=== PATIENT | male | born 1980 | race Caucasian/White ===

== ENCOUNTER 2021-04-26 14:35 | Emergency (ER) | payer OTHER, MEDICAID, SELFPAY ==
[2021-04-26] VITALS (8 sets, daily range): BP systolic 137–160; BP diastolic 82–98; PULSE 64–79; RESP 18; TEMP 36.6; O2SAT 96–99
[2021-04-26 15:00] LABS: Add Manual Diff / Slide Review NO; Basophils Absolute Auto 0 /uL (0-100); Basophils Percent Auto 0.3 % (0-2); Eosinophils Absolute Auto 100 /uL (0-450); Eosinophils Percent Auto 1.2 % (2-4); Hematocrit 49.3 % (41-53); Hemoglobin 16.7 g/dL (13.5-17.5); Lymphocytes Absolute Auto 2400 /uL (1100-4500); Lymphocytes Percent Auto 25.9 % (25-40); Mean Corpuscular HGB Conc 33.9 % (30-36); Mean Corpuscular Hemoglobin 30.7 PG (26-34); Mean Corpuscular Volume 90.5 fL (80-100); Monocytes Absolute Auto 700 /uL (0-900); Monocytes Percent Auto 8.1 % (3-14); Neutrophils Absolute Auto 6000 /uL (1500-7000); Neutrophils Percent Auto 64.5 % (50-75); Platelet Count 310 X10^3/uL (150-400); Red Blood Cell Count 5.45 X10^6/uL (4.5-5.9); White Blood Cell Count 9.2 X10^3/uL (4.5-11.0)
--- NOTE | 2021-04-26 15:02 | ED.ABDPAIN ---
HPI - Abdominal Pain General Chief Complaint: Abdominal Pain Stated Complaint: Sharp pains in lower right abd/back Time Seen by Provider: 04/26/21 14:45 Source: patient Mode of arrival: Ambulatory History of Present Illness HPI narrative: 41-year-old male nonsmoker, though he does vape) with history of PTSD presents with a chief complaint of a few weeks of episodic right lower quadrant pain with radiation to his back. He is unclear how it started and denies any prior history of the same. He states that it seems to worsen when he moves and improves with rest in his largely present on some level but does have episodes of worsening. He states that it is sharp, stabbing and occasionally cramping. He denies any fever or chills. He has no nausea, vomiting or change in appetite. He denies any diarrhea or constipation. He denies any dysuria, frequency, urgency, hematuria or other. Related Data Home Medications Medication Instructions Recorded Confirmed gabapentin 300 mg capsule 300 mg PO DAILY 04/26/21 04/26/21 methylphenidate HCl 20 mg tablet 20 mg PO DAILY 04/26/21 04/26/21 Previous Rx's Medication Instructions Recorded amoxicillin 875 mg-potassium 1 tab PO BID #20 tab 04/26/21 clavulanate 125 mg tablet (Augmentin) hydrocodone 5 mg-acetaminophen 325 1 tab PO Q4-6H PRN #10 tab 04/26/21 mg tablet ondansetron 4 mg disintegrating 4 mg PO TID-QID PRN #10 tab 04/26/21 tablet Allergies Allergy/AdvReac Type Severity Reaction Status Date / Time lamotrigine [From Lamictal] Allergy Severe Rash Verified 04/26/21 14:56 Review of Systems Review of Systems Narrative: GENERAL: Denies chills, fatigue, malaise, fever, sweats. HEENT: Denies sinus pain, ear pain, sore throat, difficulty swallowing, dizziness. RESPIRATORY: Denies dyspnea, cough, wheezing, hemoptysis, sputum. CARDIOVASCULAR: Denies chest pain, palpitations, orthopnea, edema, GASTROINTESTINAL: See HPI : Denies dysuria, frequency, incontinence, hematuria, urinary retention. MUSCULOSKELETAL: denies weakness, joint pain, or bony pain SKIN: Denies rash, skin lesions, or other NEUROLOGIC: Denies weakness, headache, numbness, change in speech, confusion, seizures, incoordination. PSYCHIATRIC: No concerning psychosocial issues. 12 point review of systems is negative except for those stated above Patient History Social History Smoking Status: Current every day smoker Smoking Status: Current every day smoker tobacco type: vaping alcohol intake frequency: other Substance Use Type: marijuana Exam Narrative Exam Narrative: GENERAL: [41 year old patient appears stated age. Well-developed patient, in mild distress. HEAD: Atraumatic. Normocephalic. EYES: Pupils equal round and reactive. Extraocular motions intact. No scleral icterus. No injection or drainage. ENT: Nose without bleeding, purulent drainage. Throat without erythema, tonsillar hypertrophy or exudate. Airway patent. NECK: Trachea midline. Non tender CARDIOVASCULAR: Regular rate and rhythm without murmurs, gallops, or rubs. RESPIRATORY: Clear to auscultation. Breath sounds equal bilaterally. No wheezes, rales, or rhonchi. GASTROINTESTINAL: Abdomen soft, mildly tender in the right lower quadrant nondistended. No guarding, rebound or change in bowel sounds EXTREMITIES: No edema or joint tenderness. BACK: Nontender without deformity or crepitance. No flank tenderness. NEURO: AOx3. SKIN: No rash or erythema of visible areas Initial Vital Signs Initial Vital Signs: Vital Signs Temperature 97.8 F 04/26/21 14:40 Pulse Rate 78 04/26/21 14:40 Respiratory Rate 18 04/26/21 14:40 Blood Pressure 156/97 H 04/26/21 14:40 Pulse Oximetry 97 04/26/21 14:40 Course Orders Ordered: ED Orders 04/26/21 14:45 Urinalysis and Microscopic Stat 04/26/21 14:50 Complete Blood Count AUTO DIFF Stat Comprehensive Metabolic Panel Stat Lipase Stat 04/26/21 15:13 CT abdomen pelvis w con Stat Discontinued Medications Sodium Chloride (Normal Saline 0.9%) 1,000 mls @ 1,000 mls/hr IV BOLUS ONE Stop: 04/26/21 15:52 Last Admin: 04/26/21 15:10 Dose: 1,000 mls/hr Documented by: LAMONT Ketorolac Tromethamine (Ketorolac 30 Mg/Ml Vial) 15 mg IV NOW ONE Stop: 04/26/21 14:54 Last Admin: 04/26/21 15:10 Dose: 15 mg Documented by: LAMONT Vital Signs Vital signs: Vital Signs - 8 hr 04/26/21 14:40 04/26/21 14:51 04/26/21 14:52 Temperature 97.8 F Pulse Rate 78 79 77 Respiratory Rate 18 Blood Pressure 156/97 H 156/97 H Pulse Oximetry 97 97 98 04/26/21 15:00 04/26/21 15:30 04/26/21 15:40 Temperature Pulse Rate 74 69 65 Respiratory Rate Blood Pressure 145/90 H 137/82 156/85 H Pulse Oximetry 96 98 99 04/26/21 16:00 Temperature Pulse Rate 65 Respiratory Rate Blood Pressure 141/90 H Pulse Oximetry 97 MDM - Abdominal Pain Lab Data Result diagrams: 04/26/21 14:50 04/26/21 14:50 Labs: Lab Results 04/26/21 04/26/21 04/26/21 Range/Units 14:45 14:50 14:50 WBC 9.2 (4.5-11.0) X10^3/uL RBC 5.45 (4.5-5.9) X10^6/uL Hgb 16.7 (13.5-17.5) g/dL Hct 49.3 (41-53) % MCV 90.5 (80-100) fL MCH 30.7 (26-34) PG MCHC 33.9 (30-36) % RDW 13.0 (11.6-14.8) % Plt Count 310 (150-400) X10^3/uL Neut % (Auto) 64.5 (50-75) % Lymph % (Auto) 25.9 (25-40) % [place] % (Auto) 8.1 (3-14) % Eos % (Auto) 1.2 L (2-4) % Baso % (Auto) 0.3 (0-2) % Neut # (Auto) 6000 (7329-3142) /uL Lymph # (Auto) 2400 (3165-4926) /uL [place] # (Auto) 700 (0-900) /uL Eos # (Auto) 100 (0-450) /uL Baso # (Auto) 0 (0-100) /uL Sodium 141 (137-145) mmol/L Potassium 4.1 (3.4-5.1) mmol/L Chloride 106 (98-107) mmol/L Carbon Dioxide 26 (22-32) mmol/L BUN 13 (9-20) mg/dL Creatinine 0.77 (0.66-1.25) mg/dL Estimated GFR > 60.0 (>60) mL/min BUN/Creatinine Ratio 16.9 (6-22) Glucose 96 (70-100) mg/dL Calcium 9.5 (8.4-10.2) mg/dL Total Bilirubin 0.7 (0.2-1.3) mg/dL AST 33 (17-59) IU/L ALT 35 (<50) IU/L Alkaline Phosphatase 77 (38-126) U/L Total Protein 8.3 H (6.3-8.2) g/dL Albumin 5.1 H (3.5-5.0) g/dL Globulin 3.2 (1.7-4.1) g/dL Albumin/Globulin Ratio 1.6 (1.0-2.8) Lipase 60 (23-300) U/L Urine Color Yellow Urine Appearance Clear Urine pH 8.0 (4.5-8.0) Ur Specific Mar[place] 1.010 (1.000-1.035) Urine Protein Negative (Negative) Urine Glucose (UA) Negative (Negative) g/dL Urine Ketones Negative (NEGATIVE) Urine Occult Blood Negative (Negative) Urine Nitrate Negative (Negative) Urine Bilirubin Negative (NEGATIVE) Urine Urobilinogen 0.2 (0.2) E.U./dL Ur Leukocyte Esterase Negative (NEGATIVE) Urine RBC None seen (0-5/HPF) Urine WBC None seen (0-5/HPF) Ur Squamous Epith Cells 1-5 /hpf (0-5/HPF) Urine Bacteria None seen (None) Ur Culture Indicated? Cult not indicated Imaging Data CT scan - abdomen/pelvis: Radiologist's Impression: Roshan Baez??41??M??1980 ? Allergy/Adv: lamotrigine Close Abdomen/Pelvis CT (Signed) Jeniffer Montejo - 04/26/21 Launch?[address] [address] [address] Scan Report Signed Patient: Roshan Baez MR#: [id number] : 1980 Acct:[id number] Age/Sex: 41 / M Date of Service: 04/26/21 Loc: ED Accession Number: [id number] ?? Procedure: CT abdomen pelvis w con Ordering Provider: Chandana Delgadillo D.O. PROCEDURE:? CT ABDOMEN PELVIS W CON ? INDICATIONS:? severe RLQ pain with radiation to back ? TECHNIQUE:? After the administration of IV contrast, axial sections were acquired from the lung bases to the pubic symphysis.? Coronal and sagittal reformats were performed.? For radiation dose reduction, the following was used:? automated exposure control, adjustment of mA and/or kV according to patient size. ? COMPARISON:? None. ? FINDINGS:? Image quality:? Excellent.? ? Lung bases:? There are several scattered subcentimeter pulmonary nodules identified as follows: ? Right middle lobe: ? 2 mm series 3, image 1 ?4 mm series 3, image 2 ?1-2 mm series 3, image 4 ? Right lower lobe ?4 mm series 3, image 5 ?1-3 mm nodules along the major fissure series 3 images 1-4 ?2 mm ground-glass appearing nodule series 3, image 3 ?6 mm series 3, image 8 ? Left lower lobe: ? 4 mm series 3, image 9 ?3 mm series 3, image 4 ?3 mm series 3, image 7 ? Left upper lobe: ? 3 mm series 3, image 8 ? Heart:? No significant findings. ? ? ABDOMEN: Liver:? Liver is mildly prominent with steatosis. Gallbladder:? No stones or wall thickening.? ? Biliary ducts:? Unremarkable.? ? Pancreas:? Unremarkable.? ? Spleen:? Unremarkable.? ? Adrenal Glands:? Unremarkable.? ? Kidneys and Ureters:? Unremarkable.? ? ? Stomach and Bowel:? Stomach, small bowel loops, and colon are nonobstructive.? There is a very minimal appearance of thickening within the distal sigmoid colon with minimal pericolonic stranding.? The appendix is normal in size.? There is a very minimal appearance of stranding within the midportion of the appendix.? Remaining segments are unremarkable. Peritoneum:? No abnormal intraperitoneal fluid.? No free air.? ? Ventral Wall: ? No hernia.? Abdominal Nodes:? No retroperitoneal or mesenteric adenopathy by size criteria.? Vessels:? Aorta and inferior vena cava are normal in size.? ? PELVIS: Pelvic Organs:? Unremarkable.? ? Bladder:? Unremarkable.? ? Pelvic Nodes: No enlarged lymph nodes.? Miscellaneous: No inguinal hernias are seen. ? ? ? Bones:? Sclerosis is present within the inferior right pubic ramus suggestive of bone island. ? ? IMPRESSION:? 1. Appendix is overall normal in size.? As noted above, there is a very minimal appearance of stranding within the midportion without wall thickening or pending cleft.? This is overall nonspecific and no priors are available for comparison.? If this correlates to area of pain, very early developing appendicitis cannot be definitively excluded and continued interval follow-up is recommended. ? 2. Minimal appearance of distal sigmoid thickening with very minimal appearance of pericolonic stranding.? Early changes of colitis cannot be excluded. ? 3. Multiple bilateral pulmonary nodules the largest measuring 6 mm.? There overall nonspecific and no priors are available for comparison.? Recommend interval follow-up as below. ? ? Fleischner Society criteria for SOLID lung nodule followup.? Nodule size (mm)Low-risk patientHigh-risk patient<6 (single or multiple)No routine followup.Optional CT at 12 months. 6-8 (single or multiple)CT at 6-12 months, then optional CT at 18-24 mo.CT at 6-12 months, then CT at 18-24 months.? >8 (single)CT, PET-CT, or biopsy at 3 months. Same as for low-risk pts.? >8 (multiple)CT at 3-6 months, then optional CT at 18-24 mo.CT at 3-6 months, then CT at 18-24 months.? Fleischner Society criteria for SUB-SOLID lung nodule followup.? Solitary pure ground-glass nodules<6 mm (ground glass or part solid)No followup needed.? 6 mm or larger (ground glass)CT at 6-12 months to confirm persistence, then CT every 2 years until 5 years.6 mm or larger (part solid)CT at 3-6 months to confirm persistence, then annual CT until 5 years if unchanged and solid component remains <6 mm.? Multiple sub-solid nodules<6 mmCT at 3-6 months, then CT consider at 2 & 4 years for high risk patients. [address] at 3-6 months. Subsequent management based on most suspicious lesions. Recommendations do not apply to lung cancer screening, patients with immunosuppression, or patients with known primary cancer. ? ? ? Dictated by: Jeniffer Montejo M.D. on 04/26/2021 at 15:59 ? ? Approved by: Jeniffer Montejo M.D. on 04/26/2021 at 16:07 ? MDM Narrative Medical decision making narrative: 41M with reassuring labs, imaging, and exam. Pain is well controlled. Tolerating orals. Questions answered to his apparent satisfaction. Return precautions given Discharge Plan Departure Patient Disposition: Home Clinical Impression: Colitis Instructions: DI for Abdominal Pain-Adult Activity Restrictions/Additional Instructions: *You have been diagnosed with [ Right lower quadrant pain likely due to early colitis. Your appendix looks good and there is no sign of bowel obstruction or kidney stone. ] *What to do: *Please continue to take your regular medications as directed. [x ] New medication prescriptions sent to your pharmacy: [[facility] in [place] ] [ ] New medication written as a paper prescription [ ] No new medications given *Please follow up with your primary care provider in 2-3 days, call for an appointment. Let them know you were seen in the Emergency Department and that we ask that you be seen in follow up. We will electronically transmit a record of today's note if your PCP is in our system * as we discussed please consider a clear liquid diet for the next few days and then advance as tolerated *Return to Emergency Department if you should have any new, worsening or concerning symptoms, such as [fever greater than 101 F, shaking chills, worsening pain, persistent vomiting or other bothersome symptoms] You have been prescribed a short course of narcotic medications. These are potentially dangerous and addictive medications that should be used carefully. While on these medications you cannot drive or operate heavy machinery. Additionally, you cannot sign legal documents or perform any duties such as this. Many people get constipated on narcotic medications so it would be advisable to discuss stool softeners with the pharmacist when you pickle processor your prescription. Please understand that we cannot provide further refills of narcotics or controlled substances through the ED and your pain management will need to be through your Primary Care Provider Prescriptions: New hydrocodone-acetaminophen 5-325 mg tablet 1 tab PO Q4-6H PRN (Reason: pain) Qty: 10 RF: 0 ondansetron 4 mg tablet,disintegrating 4 mg PO TID-QID PRN (Reason: nausea and vomiting) Qty: 10 RF: 0 amoxicillin-pot clavulanate [Augmentin] 875-125 mg tablet 1 tab PO BID Qty: 20 RF: 0 No Action methylphenidate HCl 20 mg tablet 20 mg PO DAILY RF: 0 gabapentin 300 mg capsule 300 mg PO DAILY RF: 0 Referrals: Jose Do MD [Primary Care Provider] -
[2021-04-26 15:10] LABS: Appearance Urine UA CLEAR; Bilirubin Urine UA NEGATIVE (NEGATIVE); Color Urine UA YELLOW; Glucose Urine UA NEGATIVE (Negative); Ketones Urine UA NEGATIVE (NEGATIVE); Leukocyte Esterase Urine UA NEGATIVE (NEGATIVE); Nitrite Urine UA NEGATIVE (Negative); Occult Blood Urine UA NEGATIVE (Negative); Protein Urine UA NEGATIVE (Negative); Urobilinogen Urine UA 0.2 E.U./dL (0.2)
[2021-04-26] MEDS: SODIUM CHLORIDE 0.9% 1,000 ML 1000 ML IV (15:10)
[2021-04-26] MEDS: KETOROLAC 30 MG/ML VIAL 15 MG IV (15:10)
[2021-04-26 15:13] LABS: Alanine Aminotransferase 35 IU/L (<50); Albumin 5.1 g/dL (3.5-5.0); Albumin Globulin Ratio 1.6 (1.0-2.8); Alkaline Phosphatase 77 U/L (38-126); Aspartate Aminotransferase 33 IU/L (17-59); BUN Creatinine Ratio 16.9 (6-22); Bilirubin Total 0.7 mg/dL (0.2-1.3); Blood Urea Nitrogen 13 mg/dL (9-20); Calcium 9.5 mg/dL (8.4-10.2); Carbon Dioxide 26 mmol/L (22-32); Chloride 106 mmol/L (98-107); Estimated Glomerular Filt Rate > 60.0 mL/min (>60); Globulin 3.2 g/dL (1.7-4.1); Glucose 96 mg/dL (70-100); HEMOLYSIS 20 (0-50); Lipase 60 U/L (23-300); Potassium 4.1 mmol/L (3.4-5.1); Sodium 141 mmol/L (137-145); Total Protein 8.3 g/dL (6.3-8.2)
--- NOTE | 2021-04-26 15:13 | DI.CT.S_ITS ---
PROCEDURE: CT ABDOMEN PELVIS W CON INDICATIONS: severe RLQ pain with radiation to back TECHNIQUE: After the administration of IV contrast, axial sections were acquired from the lung bases to the pubic symphysis. Coronal and sagittal reformats were performed. For radiation dose reduction, the following was used: automated exposure control, adjustment of mA and/or kV according to patient size. COMPARISON: None. FINDINGS: Image quality: Excellent. Lung bases: There are several scattered subcentimeter pulmonary nodules identified as follows: Right middle lobe: 2 mm series 3, image 1 4 mm series 3, image 2 1-2 mm series 3, image 4 Right lower lobe 4 mm series 3, image 5 1-3 mm nodules along the major fissure series 3 images 1-4 2 mm ground-glass appearing nodule series 3, image 3 6 mm series 3, image 8 Left lower lobe: 4 mm series 3, image 9 3 mm series 3, image 4 3 mm series 3, image 7 Left upper lobe: 3 mm series 3, image 8 Heart: No significant findings. ABDOMEN: Liver: Liver is mildly prominent with steatosis. Gallbladder: No stones or wall thickening. Biliary ducts: Unremarkable. Pancreas: Unremarkable. Spleen: Unremarkable. Adrenal Glands: Unremarkable. Kidneys and Ureters: Unremarkable. Stomach and Bowel: Stomach, small bowel loops, and colon are nonobstructive. There is a very minimal appearance of thickening within the distal sigmoid colon with minimal pericolonic stranding. The appendix is normal in size. There is a very minimal appearance of stranding within the midportion of the appendix. Remaining segments are unremarkable. Peritoneum: No abnormal intraperitoneal fluid. No free air. Ventral Wall: No hernia. Abdominal Nodes: No retroperitoneal or mesenteric adenopathy by size criteria. Vessels: Aorta and inferior vena cava are normal in size. PELVIS: Pelvic Organs: Unremarkable. Bladder: Unremarkable. Pelvic Nodes: No enlarged lymph nodes. Miscellaneous: No inguinal hernias are seen. Bones: Sclerosis is present within the inferior right pubic ramus suggestive of bone island. IMPRESSION: 1. Appendix is overall normal in size. As noted above, there is a very minimal appearance of stranding within the midportion without wall thickening or pending cleft. This is overall nonspecific and no priors are available for comparison. If this correlates to area of pain, very early developing appendicitis cannot be definitively excluded and continued interval follow-up is recommended. 2. Minimal appearance of distal sigmoid thickening with very minimal appearance of pericolonic stranding. Early changes of colitis cannot be excluded. 3. Multiple bilateral pulmonary nodules the largest measuring 6 mm. There overall nonspecific and no priors are available for comparison. Recommend interval follow-up as below. Fleischner Society criteria for SOLID lung nodule followup. Nodule size (mm)Low-risk patientHigh-risk patient<6 (single or multiple)No routine followup.Optional CT at 12 months. 6-8 (single or multiple)CT at 6-12 months, then optional CT at 18-24 mo.CT at 6-12 months, then CT at 18-24 months. >8 (single)CT, PET-CT, or biopsy at 3 months. Same as for low-risk pts. >8 (multiple)CT at 3-6 months, then optional CT at 18-24 mo.CT at 3-6 months, then CT at 18-24 months. Fleischner Society criteria for SUB-SOLID lung nodule followup. Solitary pure ground-glass nodules<6 mm (ground glass or part solid)No followup needed. 6 mm or larger (ground glass)CT at 6-12 months to confirm persistence, then CT every 2 years until 5 years.6 mm or larger (part solid)CT at 3-6 months to confirm persistence, then annual CT until 5 years if unchanged and solid component remains <6 mm. Multiple sub-solid nodules<6 mmCT at 3-6 months, then CT consider at 2 & 4 years for high risk patients. [address] at 3-6 months. Subsequent management based on most suspicious lesions. Recommendations do not apply to lung cancer screening, patients with immunosuppression, or patients with known primary cancer. Dictated by: Jeniffer Montejo M.D. on 04/26/2021 at 15:59 Approved by: Jeniffer Montejo M.D. on 04/26/2021 at 16:07
[2021-04-26 15:23] LABS: Bacteria Urine None Seen; Culture Indicated Urine Cult Not Indicated; RBC Urine None Seen (0-5/HPF); Squamous Epithelial Cell Urine 1-5 /HPF (0-5/HPF); WBC Urine None Seen (0-5/HPF)
== END 2021-04-26 16:36 | disposition home or self-care (01) ==
PROVIDERS: Emergency Provider Emergency Medicine; PCP Internal Medicine
DX: K52.9 Noninfective gastroenteritis and colitis, unspecified (principal)
CPT/HCPCS: 36415; 74177; 80053; 81001; 83690; 85025; 96361; 96374; 99284; J1885; Q9967

== ENCOUNTER → 2021-05-07 11:41 | Outpatient (CLI) | payer OTHER, MEDICAID, SELFPAY ==
--- NOTE | 2021-05-07 | DI.CT.S_ITS ---
PROCEDURE: CT ABDOMEN PELVIS W CON INDICATIONS: Right lower quadrant pain TECHNIQUE: After the administration of oral and intravenous contrast, axial sections were acquired from the lung bases to the pubic symphysis. Coronal and sagittal reformats were performed. For radiation dose reduction, the following was used: automated exposure control, adjustment of mA and/or kV according to patient size. COMPARISON:[facility], CT, CT ABDOMEN PELVIS W CON, 04/26/2021, 15:37. FINDINGS: Image quality: Excellent. Lung bases: Lung bases are clear. Heart size is normal. Solid organs: Liver: The liver has no mass or intrahepatic biliary ductal dilatation. The portal vein and hepatic veins are patent. Biliary: The gallbladder has no gallstones, pericholecystic fluid, gallbladder wall thickening, or surrounding inflammatory change. Pancreas: The pancreas has no mass or ductal dilatation. There is no surrounding inflammation. Spleen: Normal size. There are no masses. Adrenals: No hypertrophy or nodules. Kidneys: No obstructive calculus or hydronephrosis. No solid mass. No cystic mass. Peritoneum and bowel: The distal esophagus and stomach are normal. The small bowel has a normal caliber and appearance. The terminal ileum is normal. The large bowel has a normal caliber and appearance. The appendix is normal. No free fluid or air. Nodes and vessels: No retroperitoneal or mesenteric adenopathy by size criteria. Aorta and inferior vena cava are normal in size. Miscellaneous: No abdominal wall mass or hernia. PELVIS: Genitourinary: The bladder has no wall thickening or mass. No bladder calcifications. Miscellaneous: No inguinal hernias or adenopathy. Bones: No suspicious bony lesions. No vertebral body compression fractures. IMPRESSION: 1. No acute abdominal or pelvic abnormality. 2. Normal appendix. No kidney stones. Dictated by: Edgar Dang M.D. on 05/07/2021 at 13:36 Approved by: Edgar Dang M.D. on 05/07/2021 at 13:40
== END ==
PROVIDERS: PCP Internal Medicine; Referring Provider Family Medicine; Visit Provider Family Medicine
DX: R10.31 Right lower quadrant pain (principal)
CPT/HCPCS: 74177

== ENCOUNTER 2023-07-27 01:35 | Emergency (ER) | payer OTHER, MEDICAID, SELFPAY ==
[2023-07-27] VITALS (10 sets, daily range): BP systolic 117–160; BP diastolic 70–99; PULSE 37–84; RESP 18; TEMP 36.8; O2SAT 93–98; BMI 25.8
--- NOTE | 2023-07-27 01:46 | DI.US.S_ITS ---
PROCEDURE: US SCROTUM INDICATIONS: L testicular pain TECHNIQUE: Real-time scanning was performed of the scrotum and testicles, with image documentation. Color and pulse Doppler interrogation was performed of both testicles. COMPARISON: None. FINDINGS: Right: Testicle is normal in size at 4.3 x 2.3 x 2.9 cm, and homogenous in echotexture. Epididymis is normal in overall size and morphology. No hydrocele or varicoceles. Overlying scrotal skin is normal in thickness. Left: Testicle is normal in size at 3.9 x 2.0 x 2.7 cm, and homogeneous in echotexture. Epididymis is normal in overall size and morphology. No hydrocele or varicoceles. Overlying scrotal skin is normal in thickness. Incidental left epididymal head cysts. Doppler: Color and pulse Doppler demonstrate normal and symmetric arterial flow in both testicles. IMPRESSION: Unremarkable sonographic evaluation of the bilateral testicles. No evidence for acute inflammatory changes. No evidence for testicular torsion. No significant discrepancy with the night assistant radiology preliminary report. Dictated by: Rey Torres M.D. on 07/27/2023 at 7:57 Approved by: Rey Torres M.D. on 07/27/2023 at 8:03
--- NOTE | 2023-07-27 01:52 | ED_ITS ---
HPI - General Adult General Chief complaint: Urogenital-Male Stated complaint: pain in left testicle was seen in [place] Time Seen by Provider: 07/27/23 01:38 Source: patient Mode of arrival: Ambulatory History of Present Illness HPI narrative: Patient is a 43-year-old male. Approximately 2 weeks ago the patient had left- sided testicular pain. He went to an outside emergency department. He states that he had some labs drawn to check to see whether or not he had any sexually transmitted infections. No ultrasound was performed. He was presumptively treated for an STI. He completed the course of antibiotics. He thinks that ap proximately 5-7 days after starting the antibiotics all of the discomfort that he was having actually resolved. He states that approximately 12 hours ago before coming to the emergency department this time he started to have the same left-sided testicular pain. No swelling. No vomiting. No abdominal pain. No urinary symptoms. No skin rashes. He states he was concerned about how bad the pain was going to become given his experience with this 2 weeks ago which is why he came to the emergency department this evening. Related Data Home Medications Medication Instructions Recorded Confirmed gabapentin 300 mg capsule 300 mg PO DAILY 04/26/21 04/26/21 methylphenidate HCl 20 mg tablet 20 mg PO DAILY 04/26/21 04/26/21 Previous Rx's Medication Instructions Recorded amoxicillin 875 mg-potassium 1 tab PO BID #20 tabs 04/26/21 clavulanate 125 mg tablet (Augmentin) hydrocodone 5 mg-acetaminophen 325 1 tab PO Q4-6H PRN pain #10 tabs 04/26/21 mg tablet ondansetron 4 mg disintegrating 4 mg PO TID-QID PRN nausea and 04/26/21 tablet vomiting #10 tabs Allergies Allergy/AdvReac Type Severity Reaction Status Date / Time lamotrigine [From Lamictal] Allergy Severe Rash Verified 04/26/21 14:56 Review of Systems Constitutional Constitutional: Reports system reviewed and no additional complaints, except as documented Gastrointestinal Gastrointestinal: Reports system reviewed and no additional complaints, except as documented Genitourinary Genitourinary: Reports system reviewed and no additional complaints, except as documented Integumentary/Breasts Skin/Breast: Reports system reviewed and no additional complaints, except as documented Neurologic Neurologic: Reports system reviewed and no additional complaints, except as documented Patient History Social History Smoking Status: Current every day smoker Smoking Status: Current every day smoker tobacco type: vaping alcohol intake frequency: other Substance Use Type: marijuana Exam Initial Vital Signs Initial Vital Signs: Vital Signs Temperature 98.3 F 07/27/23 01:40 Pulse Rate 72 07/27/23 01:40 Respiratory Rate 18 07/27/23 01:40 Blood Pressure 160/99 H 07/27/23 01:40 Pulse Oximetry 98 07/27/23 01:40 Oxygen Delivery Method Room Air 07/27/23 01:40 Const General: cooperative, comfortable and No ill appearing GI Inspection: normal to inspection and non-distended Palpation: soft, No firm and No tender External: normal external exam, circumcised, no hernia and no lesions Penis: normal penis, no ecchymosis, not edematous and no masses Scrotum: scrotum normal Testes: normal, epididymides normal, no epidiymal tenderness, no testicular mass, no testicular swelling and testicular tenderness on the left Skin General: no rashes or lesions noted Course Orders Ordered: ED Orders 07/27/23 01:46 US scrotum Stat 07/27/23 02:01 Chlamydia Gonorrhea PCR -URINE Stat Vital Signs Vital signs: Vital Signs - 8 hr 07/27/23 01:40 07/27/23 01:42 07/27/23 01:43 Temperature 98.3 F Pulse Rate 72 37 L Respiratory Rate 18 Blood Pressure 160/99 H 160/99 H Pulse Oximetry 98 96 Oxygen Delivery Method Room Air 07/27/23 01:43 07/27/23 01:55 07/27/23 02:00 Temperature Pulse Rate 74 72 Respiratory Rate 18 Blood Pressure 160/99 H 144/97 H Pulse Oximetry 97 94 Oxygen Delivery Method Room Air 07/27/23 02:00 07/27/23 02:30 07/27/23 02:30 Temperature Pulse Rate 69 83 Respiratory Rate Blood Pressure 126/74 Pulse Oximetry 96 95 Oxygen Delivery Method 07/27/23 03:00 07/27/23 03:00 07/27/23 03:30 Temperature Pulse Rate 61 84 Respiratory Rate Blood Pressure 127/85 Pulse Oximetry 96 98 Oxygen Delivery Method 07/27/23 03:31 07/27/23 03:31 07/27/23 04:00 Temperature Pulse Rate 68 Respiratory Rate Blood Pressure 125/76 117/70 Pulse Oximetry 98 Oxygen Delivery Method 07/27/23 04:00 Temperature Pulse Rate 60 Respiratory Rate Blood Pressure Pulse Oximetry 93 Oxygen Delivery Method Medical Decision Making Lab Data Lab results reviewed: Yes I reviewed the patient's lab results. Labs: Lab Results 07/27/23 Range/Units 02:01 Ur Chlamydia DNA (PCR) Not detected N gonorrhoeae DNA (PCR) Not detected Urine Dip Bedside Urine Glucose Negative Bedside Urine Bilirubin - Negative Bedside Urine Ketone - Negative Urine Specific [place] 1.005 Bedside Urine Occult Blood - Negative Bedside Urine pH 6.5 Bedside Urine Protein - Negative Bedside Urine Urobilinogen - Negative Bedside Urine Nitrite - Negative Bedside Urine Leukocytes +/- 15 Esterase Point of care testing: Urine Dip Bedside Urine Glucose Negative Bedside Urine Bilirubin - Negative Bedside Urine Ketone - Negative Urine Specific [place] 1.005 Bedside Urine Occult Blood - Negative Bedside Urine pH 6.5 Bedside Urine Protein - Negative Bedside Urine Urobilinogen - Negative Bedside Urine Nitrite - Negative Bedside Urine Leukocytes +/- 15 Esterase Imaging Data scrotal US: Radiologist's Impression: Small left epididymal head cyst. Otherwise unremarkable study. No evidence of torsion. No findings to suggest epididymitis or orchitis MDM Narrative Medical decision making narrative: Patient has had approximately 12 hours of left-sided testicular pain. Ultrasound shows no signs of torsion or epididymitis. His gonorrhea and chlamydia test negative. He has completed a course of what sounds like presumptive treatment for GC and chlamydia most likely from a presumptive diagnosis of epididymitis however the notes from his prior ED study not available for my review. He has no rashes in the area. No hernia felt. No abdominal tenderness. He also has not had fevers or sore throat. For now will treat conservatively with supportive clothing, ice and anti-inflammatories. Will have the patient contact his primary doctor for follow-up. He was given return precautions. He expressed understanding and agreement. Discharge Plan Departure Patient Disposition: Home Clinical Impression: Pain in left testicle Activity Restrictions/Additional Instructions: The ultrasound today shows no signs of infection or twisting of the testicle. Recommend that you continue with conservative measures such as ice, supportive clothing, and anti-inflammatories. Contact your primary care doctor for a follow-up. We turned to the emergency department for new symptoms. Prescriptions: No Action methylphenidate HCl 20 mg tablet 20 mg PO DAILY gabapentin 300 mg capsule 300 mg PO DAILY hydrocodone-acetaminophen 5-325 mg tablet 1 tab PO Q4-6H PRN (Reason: pain) Qty: 10 0RF ondansetron 4 mg tablet,disintegrating 4 mg PO TID-QID PRN (Reason: nausea and vomiting) Qty: 10 0RF amoxicillin-pot clavulanate [Augmentin] 875-125 mg tablet 1 tab PO BID Qty: 20 0RF Referrals: Jose Do MD [Primary Care Provider] - Stand Alone Forms: Patient Portal/API
[2023-07-27 03:37] LABS: Urine N gonorrhoeae NOT DETECTED
[2023-07-27 04:01] LABS: Urine Chlamydia NOT DETECTED
== END 2023-07-27 04:15 | disposition home or self-care (01) ==
PROVIDERS: Emergency Provider Emergency Medicine; PCP Internal Medicine
DX: N50.812 Left testicular pain (principal)
CPT/HCPCS: 76870; 81003; 87491; 87591; 93975; 99283